=== PATIENT | male | born 1995 | race Caucasian/White ===

== ENCOUNTER 2020-01-16 11:59 | Emergency (ER) | payer OTHER ==
[~2020-01-16] VITALS: Ht 180.3 cm; Wt 86.2 kg
[2020-01-16 12:07] VITALS: BP 145/92
--- NOTE | 2020-01-16 12:11 | NUR ---
pt is medically cleared for booking. pt is released under the care of [facility]. Pt is in stable condition. He is ambulatory on steady gait.
== END 2020-01-16 12:12 ==
LOC: ER 12:04
DX: S02.69XA Fracture of mandible of other specified site, initial encounter for closed fracture (principal); Y04.0XXA Assault by unarmed brawl or fight, initial encounter; Y93.89 Activity, other specified; Y92.89 Other specified places as the place of occurrence of the external cause; Y99.8 Other external cause status

== ENCOUNTER 2020-01-27 13:00 | Emergency (ER) | payer BC, OTHER ==
[~2020-01-27] VITALS: Ht 180.3 cm; Wt 82.6 kg
[2020-01-27 13:34] VITALS: BP 122/70
== END 2020-01-27 14:14 | disposition home or self-care (01) ==
LOC: ER 13:04
DX: S02.69XD Fracture of mandible of other specified site, subsequent encounter for fracture with routine healing (principal); F17.200 Nicotine dependence, unspecified, uncomplicated; Y08.89XD Assault by other specified means, subsequent encounter

== ENCOUNTER 2024-04-15 17:13 | Emergency (ER) | payer SELFPAY ==
[~2024-04-15] VITALS: Ht 172.7 cm; Wt 72.6 kg
[2024-04-15 18:28] LABS: BASOPHILS % (AUTO) 0.3 % (0.0-2.0); EOSINOPHILS # (AUTO) 0.3 K/uL (0.0-0.7); EOSINOPHILS % (AUTO) 3.9 % (0.0-6.0); HEMATOCRIT 38 % (39-51); HEMOGLOBIN 13.3 g/dL (13.5-17.5); LYMPHOCYTES # (AUTO) 1.1 K/uL (0.8-4.8); LYMPHOCYTES % (AUTO) 15.4 % (20.0-44.0); MEAN CORPUSCULAR HEMOGLOBIN 31 PG (26.0-33.0); MEAN CORPUSCULAR HGB CONC 35 g/dl (31.0-36.0); MEAN CORPUSCULAR VOLUME 88 fL (80-96); MONOCYTES # (AUTO) 0.5 K/uL (0.1-1.30); MONOCYTES % (AUTO) 6.8 % (2.0-12.0); NEUTROPHILS # (AUTO) 5.4 K/uL (1.8-8.9); NEUTROPHILS % (AUTO) 73.6 % (43.0-81.0); PLATELET COUNT (AUTO) 184 K/uL (150-450); RED BLOOD CELL COUNT(AUTO) 4.37 MIL/uL (4.5-6.0); RED CELL DISTRIBUTION WIDTH 13.8 % (11.5-15.0); WHITE BLOOD COUNT (AUTO) 7.3 K/uL (4.3-11.0)
[2024-04-15 18:36] LABS: CALCIUM, SERUM 8.6 mg/dL (8.5-10.1); POTASSIUM 3.8 mmol/L (3.5-5.1)
[2024-04-15] MEDS ORDERED: KETAMINE HCL (500MG/5 ML) 100 MG/ML VIAL ONE (18:36)
[2024-04-15] MEDS ORDERED: KETOROLAC TROMETHAMINE INJ 30 MG/ML VIAL ONE (18:37)
[2024-04-15 18:40] LABS: INR 1.07 (0.91-1.10); PARTIAL THROMBOPLASTIN TIME 23.2 SEC (24.3-34.3)
[2024-04-15] MEDS: KETOROLAC TROMETHAMINE INJ 30 MG/ML VIAL IV ONE (18:52)
[2024-04-15] MEDS: CEFAZOLIN 1 GM in IV D5W 50 ML IV ONE (18:55)
[2024-04-15] MEDS: KETAMINE HCL (500MG/10ML) 50 MG/ML VIAL IV ONE (18:56)
[2024-04-15] MEDS ORDERED: CEFTRIAXONE 1GM BAG (ER ONLY) 50 ML IV ONE ×2 (21:47→22:22)
[2024-04-15] MEDS: CEFTRIAXONE 1GM BAG (ER ONLY) 1 GM/50 ML PIGGYBACK IV ONE ×2 (21:56→22:27)
[2024-04-15] MEDS ORDERED: CEFTRIAXONE 2 G VIAL IV ONE (22:00)
[2024-04-15 23:07] VITALS: BP 111/73; TEMP 97.9; O2SAT 99
== END 2024-04-15 23:08 | disposition short-term general hospital (02) ==
LOC: ER 18:00
DX: S82.51XB Displaced fracture of medial malleolus of right tibia, initial encounter for open fracture type I or II (principal); F17.200 Nicotine dependence, unspecified, uncomplicated; V98.8XXA Other specified transport accidents, initial encounter; Y93.89 Activity, other specified; Y92.89 Other specified places as the place of occurrence of the external cause; Y99.8 Other external cause status
CPT/HCPCS: 36415; 73590-TC; 73610-TC; 80048-TC; 85025-TC; 85730-TC; A6403; J0690; J0696; J1885; J7030; J7060